=== PATIENT | female | born 1990 | race Caucasian/White ===

== ENCOUNTER → 2024-02-26 | Outpatient (CLI) | payer MEDICAID ==
[2024-02-26 12:22] LABS: HEMATOCRIT 45.2 % (37.0-47.0); MEAN CELL VOLUME 90 fl (78-100); MEAN CORPUSCULAR HEMOGLOBIN 30 pg (27-31); MEAN CORPUSCULAR HGB CONC 33 g/dL (33-37); MEAN PLATELET VOLUME 9.1 fl (7.4-10.4); PLATELET COUNT 600 K/mm3 (130-400); RED CELL DISTRIBUTION WIDTH 13.6 % (11.5-14.5); WHITE BLOOD COUNT 11.4 K/mm3 (4.8-10.8)
[2024-02-26 12:26] LABS: ALBUMIN 4.6 g/dL (3.5-5.0)
[2024-02-26 12:27] LABS: CALCIUM 11.1 mg/dL (8.3-10.5)
[2024-02-26 12:29] LABS: TOTAL PROTEIN 7.7 g/dL (6.4-8.3)
[2024-02-26 12:30] LABS: TOTAL BILIRUBIN 0.4 mg/dL (0.2-1.2)
[2024-02-26 12:39] LABS: D-DIMER 0.47 mg/L FEU (0.15-0.50)
[2024-02-26 22:06] LABS: BAND 1 % (0-10); LYMPHOCYTE 55 % (20-51); MONOCYTE 3 % (3-10); NEUTROPHILS 39 % (42-75)
== END ==
LOC: LAB 12:03
PROVIDERS: Nurse Practitioner
DX: R06.09 Other forms of dyspnea (principal); R53.83 Other fatigue; M79.7 Fibromyalgia